=== PATIENT | male | born 1940 | race Caucasian/White ===

== ENCOUNTER 2021-02-17 09:32 | Emergency (ER) | payer MEDICARE, OTHER ==
--- NOTE | 2021-02-17 09:51 | EDM.PDOC ---
ED HPI GENERAL MEDICAL PROBLEM - General Chief Complaint: Back Pain or Injury Stated Complaint: BACK PAIN FELL DOWN [place] FELL ON TOP OF PT Time Seen by Provider: 02/17/21 09:47 Source of Information: Reports: Patient History Limitations: Reports: No Limitations - History of Present Illness INITIAL COMMENTS - FREE TEXT/NARRATIVE: HISTORY AND PHYSICAL: History of present illness: Patient is a 80-year-old male who presents to the emergency room with complaints of left posterior chest wall and scapular pain. Patient states a week ago he was [place] it was spooked by a swarm of bees. They fell off the ledge of the [place] approximately 10 to 12 feet with the mule landing on him. He denies any loss of consciousness. States he felt fairly well considering he had just fallen. Over the next few days he noticed mild tenderness and bruising to his pelvis, bilateral thighs and pain to his left posterior chest/scapula. He has been taking some leftover pain medications he had available to him: Tramadol, oxycodone and Ibuprofen 800 mg . Patient states he feels pretty good today as the ibuprofen has been helping best. Patient denies any fever, chills, headache, change in vision, syncope or near syncope. Denies any chest pain, shortness of breath hemoptysis or cough. Denies any abdominal pain, nausea, vomiting, diarrhea, constipation or dysuria. Has not noted any blood in urine or stool. Patient has been eating and drinking appropriately. Review of systems: As per history of present illness and below otherwise all systems reviewed and negative. Past medical history: As per history of present illness and as reviewed below otherwise noncontributory. Surgical history: As per history of present illness and as reviewed below otherwise noncontributory. Social history: See social history for further information Family history: As per history of present illness and as reviewed below otherwise noncontributory. Physical exam: General: Well developed and well nourished 80 year old male. Alert and orientated x 3. Nontoxic in appearance and in no acute distress. Vital signs are stable and have been reviewed by me. Nursing notes were reviewed. HEENT: Atraumatic, normocephalic, pupils equal and reactive bilaterally, negative for conjunctival pallor or scleral icterus, mucous membranes moist, TMs normal bilaterally, throat clear, neck supple, nontender, trachea midline. No drooling or trismus noted. No meningeal signs. No hot potato voice noted. Lungs: Clear to auscultation bilaterally. No wheezes, rales, or rhonchi. Chest nontender. Normal work of breathing, no accessory muscles used. Heart: S1S2, regular rate and rhythm without overt murmur, gallops, or rubs. No JVD. No peripheral edema Abdomen: Soft, nondistended, nontender. Normoactive bowel sounds. Negative for masses or costovertebral tenderness. Pelvis: Stable nontender. C-spine/Back: No pinpoint vertebral tenderness upon palpation. No crepitus, s tep-offs or obvious deformities. Patient is ambulatory into the emergency room without difficulty or deficit. Able to rock back on heels and walk on toes. Denies any urinary or fecal incontinence. Denies any numbness, tingling or saddle paresthesia. No concerns of serious infection, fracture or cord compression, or cauda equina syndrome. Deep tendon reflexes brisk bilaterally. Skin: Healing bruise to bilateral inner thighs and left hip. Remaining skin is intact, warm, dry. No lesions or rashes noted. Hematologic: No petechiae or purpra. Mucosa appropriate color and normal nail bed color and refill. Extremities: Atraumatic, moves all extremities per self without difficulty or deficits, negative for cords or calf pain. Neurovascular unremarkable. Neuro: Awake, alert, oriented. Cranial nerves II through XII unremarkable. Cerebellum unremarkable. Motor and sensory unremarkable throughout. Exam nonfocal. Psychiatric: Mood and affect are appropriate. Normal thought process. Answering questions appropriately. Notes: *This patient was seen and evaluated during the 2019 SARS-CoV-2 novel coronavirus pandemic period. Community viral transmission is ongoing at time of this encounter and the emergency department is operating under pandemic response procedures. Patient is a 80-year-old male who presents to the emergency room with complaints of shoulder and posterior rib pain. Patient is a very active man and states that he [place] a lot of hiking [place] He had a fall approximately 1 week ago and states still continues to bother him. He is here today as he is returning back home and would like an x-ray before he drives back. X-ray shows no evidence of acute fracture or dislocation. Postop changes Left shoulder. Status post median sternotomy. Negative radiographic examination of the left shoulder. I did offer the patient a sling, he declines. He would like a refill of his ibuprofen 800 mg as he states this works best on his pain. I hav e talked with the patient about today's findings, in addition to providing specific details for plan of care. Encouraged him to follow-up with his orthopedic provider back home as he may need further imaging such as an MRI for further evaluation of his pain if it persists. Reassessment at the time of disposition demonstrates that the patient is in no acute distress. The patient is stable for discharge, counseling was provided and we discussed in great detail signs and symptoms that would prompt them to return to the Emergency Department. Medication, follow up and supportive care measures were reviewed and discussed. Voices understanding and is agreeable to plan of care. Denies any further questions or concerns at this time. Diagnostics: X-ray of left shoulder and chest with rib detail Therapeutics: Declines Prescription: Ibuprofen Impression: Fall Shoulder pain Plan: 1. You were evaluated today on an emergent basis. Rest, ice, elevate the extremity as able. 2. You can alternate Tylenol and ibuprofen as needed for pain and fever management. 3. We encourage you to follow up with your primary care provider and/or orthopedic provider 4. If your symptoms should worsen, new symptoms develop or any of the signs and symptoms we discussed should arise please return to the emergency room or call 911 (if needed). Definitive disposition and diagnosis as appropriate pending reevaluation and review of above. Back Pain Score (Numeric/FACES): 3 - Related Data Allergies Allergy/AdvReac Type Severity Reaction Status Date / Time No Known Allergies Allergy Verified 02/17/21 09:57 Home Meds: Home Meds Aspirin 81 mg PO DAILY 02/17/21 [History] Clopidogrel [Plavix] 75 mg PO DAILY 02/17/21 [History] Ibuprofen 800 mg PO BID #30 tablet 02/17/21 [Rx] Nitroglycerin 1 tab PO ASDIRECTED 02/17/21 [History] ED ROS GENERAL - Review of Systems Review Of Systems: Comprehensive ROS is negative, except as noted in HPI. ED EXAM, GENERAL - Physical Exam Exam: See Below (See dictation) Course - Vital Signs Last Recorded V/S: Last Vital Signs Temp 97 F 02/17/21 09:59 Pulse 80 02/17/21 09:59 Resp 16 02/17/21 09:59 BP 129/78 02/17/21 09:59 Pulse Ox 98 02/17/21 09:59 - Orders/Labs/Meds Orders: Active Orders 24 hr Category Date Time Status EKG Documentation Completion [RC] STAT Care 02/17/21 10:36 Active Departure - Departure Time of Disposition: 11:40 Disposition: Home, Self-Care 01 Clinical Impression: Fall Qualifiers: Encounter type: initial encounter Qualified Code(s): W19.XXXA - Unspecified fall, initial encounter Shoulder pain Qualifiers: Chronicity: unspecified Laterality: left Qualified Code(s): M25.512 - Pain in left shoulder - Discharge Information Prescriptions: Ibuprofen 800 mg PO BID #30 tablet Referrals: PCP,None [Primary Care Provider] - Forms: ED Department Discharge Additional Instructions: The following information is given to patients seen in the emergency department who are being discharged to home. This information is to outline your options for follow-up care. We provide all patients seen in our emergency department with a follow-up referral. The need for follow-up, as well as the timing and circumstances, are variable depending upon the specifics of your emergency department visit. If you don't have a primary care physician on staff, we will provide you with a referral. We always advise you to contact your personal physician following an emergency department visit to inform them of the circumstance of the visit and for follow-up with them and/or the need for any referrals to a consulting specialist. The emergency department will also refer you to a specialist when appropriate. This referral assures that you have the opportunity for follow-up care with a specialist. All of these measure are taken in an effort to provide you with optimal care, which includes your follow-up. Under all circumstances we always encourage you to contact your private physician who remains a resource for coordinating your care. When calling for follow-up care, please make the office aware that this follow-up is from your recent emergency room visit. If for any reason you are refused follow-up, please contact the [facility] Emergency Department at and asked to speak to the emergency department charge nurse. [facility] [address] [place] [id number] [facility] [address] [place] [id number] Thank you for choosing the [facility] emergency department in [place] for your medical needs today. It was a pleasure caring for you. Today you were seen in the emergency department for shoulder pain. 1. You were evaluated today on an emergent basis. Rest, ice, elevate the extremity as able. 2. You can alternate Tylenol and ibuprofen as needed for pain and fever management. 3. We encourage you to follow up with your primary care provider and/or orthopedic provider 4. If your symptoms should worsen, new symptoms develop or any of the signs and symptoms we discussed should arise please return to the emergency room or call 911 (if needed). Sepsis Event Note (ED) - Focused Exam Vital Signs: Vital Signs Temp Pulse Resp BP Pulse Ox 02/17/21 09:59 97 F 80 16 129/78 98 - My Orders Last 24 Hours: My Active Orders 02/17/21 10:36 EKG Documentation Completion [RC] STAT - Assessment/Plan Last 24 Hours: My Active Orders 02/17/21 10:36 EKG Documentation Completion [RC] STAT
--- NOTE | 2021-02-17 11:16 | PCM.EKG ---
#1 Interpretation EKG Date: 02/17/21 Time: 11:11 Rhythm: NSR Rate (Beats/Min): 63 [place]: Normal P-Wave: Present QRS: Normal ST-T: Normal QT: Normal Comparison: NA - No Prior EKG EKG Interpretation Comments: Sinus Rhythm
--- NOTE | 2021-02-17 11:26 | CR ---
INDICATION: Trauma; left shoulder pain. COMPARISON: None. TECHNIQUE: Three-view study left shoulder. FINDINGS: No evidence of acute fracture or dislocation. Postop changes Left shoulder. Status post median sternotomy. Impression: Negative radiographic examination of the left shoulder. Dictated by John Anton MD @ 02/17/2021 11:24:[address] John Anton @ Feb 17 2021 11:24AM
--- NOTE | 2021-02-17 11:28 | CR ---
INDICATION: Trauma; left chest pain. TECHNIQUE: Four view study chest and left rib cage detail. Findings: Normal size cardiac silhouette. Status post median sternotomy. No pneumothorax or pleural effusion. No evidence of fracture involving the left ribcage . Impression :negative chest and left ribcage detail. Dictated by John Anton MD @ 02/17/2021 11:26:[address] John Anton @ Feb 17 2021 11:26AM
== END 2021-02-17 11:51 | disposition home or self-care (01) ==
LOC: MW.ED 09:32
DX: M25.512 Pain in left shoulder (principal); Z79.82 Long term (current) use of aspirin; Z79.02 Long term (current) use of antithrombotics/antiplatelets; W17.89XA Other fall from one level to another, initial encounter
CPT/HCPCS: 71101-26-LT; 71101-LT; 73030-26-LT; 73030-LT; 93005; 99283-25